=== PATIENT | female | born 1990 | race American Indian/Alaskan Native ===

== ENCOUNTER 2017-08-17 10:39 | Emergency (ER) | payer OTHER ==
[2017-08-17 11:06] VITALS: BP 115/77; PULSE 77; RESP 18; TEMP 98.3; O2SAT 100
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
== END 2017-08-17 12:04 | disposition home or self-care (01) ==
LOC: C.ER 10:39
DX: S16.1XXA Strain of muscle, fascia and tendon at neck level, initial encounter (principal); S46.911A Strain of unspecified muscle, fascia and tendon at shoulder and upper arm level, right arm, initial encounter; V49.59XA Passenger injured in collision with other motor vehicles in traffic accident, initial encounter; Y92.410 Unspecified street and highway as the place of occurrence of the external cause